=== PATIENT | male | born 1965 | race Caucasian/White ===

== ENCOUNTER 2018-09-16 07:53 | Day surgery (SDC) | payer OTHER ==
[2018-09-16] MEDS ORDERED: PROPOFOL 20 ML (08:50)
[2018-09-16] MEDS ORDERED: ROCURONIUM 50 MG INJ (08:50)
[2018-09-16] MEDS ORDERED: MIDAZOLAM 1 MG/ML 2 ML INJ (08:51)
[2018-09-16] MEDS ORDERED: HYDROmorphONE 2 MG/ML SYG (08:51)
[2018-09-16] MEDS ORDERED: ROPIVACAINE 0.5 % 30 ML VIAL (08:51)
[2018-09-16] MEDS ORDERED: morphine SULFATE/PF (10 MG/10 ML) INJ (09:19)
[2018-09-16 09:51] LABS: INR 0.96; PARTIAL THROMBOPLASTIN TIME 28.6 Sec (23.0-35.0); PROTIME 12.9 Sec (11.9-14.9)
[2018-09-16] MEDS ORDERED: EPHEDrine SULFATE 50 MG/5 ML SYG IV (10:00)
[2018-09-16] MEDS ORDERED: LABETALOL HCL 20MG INJ IV (10:00)
[2018-09-16] MEDS ORDERED: ONDANSETRON 4 MG INJ IV (10:00)
[2018-09-16] MEDS ORDERED: MEPERIDINE 25 MG INJ IV (10:00)
[2018-09-16] MEDS ORDERED: hydrALAzine 20 MG INJ IV (10:00)
[2018-09-16] MEDS ORDERED: HYDROmorphONE 1 MG/5 ML IV SYRINGE IV ×3 (10:00)
[2018-09-16] MEDS ORDERED: OXYCODONE/ACETAMINOPHEN (5/325) TAB PO ×2 (10:00)
[2018-09-16] MEDS ORDERED: DIPHENHYDRAMINE 50 MG INJ IV (10:00)
[2018-09-16] MEDS ORDERED: FENTAnyl 50 MCG/ML VIAL IV ×3 (10:00)
[2018-09-16] MEDS ORDERED: METOCLOPRAMIDE 10 MG INJ IV (10:00)
[2018-09-16] MEDS ORDERED: ONDANSETRON 4 MG INJ (10:30)
[2018-09-16] MEDS ORDERED: METOCLOPRAMIDE 10 MG INJ (10:30)
[2018-09-16] MEDS ORDERED: DEXAMETHASONE 4 MG/ML 1 ML INJ (10:31)
[2018-09-16] MEDS ORDERED: KETOROLAC 30 MG INJ (10:31)
[2018-09-16] MEDS: EPINEPHrine 1 MG/ML 30 ML INJ IRR (10:43)
[2018-09-16] MEDS: morphine SULFATE/PF (10 MG/10 ML) INJ EPI (10:43)
[2018-09-16] MEDS: EPINEPHrine 1 MG/ML 30 ML INJ INJ (10:43)
[2018-09-16] MEDS ORDERED: GLYCOPYRROLATE 0.4 MG INJ (11:20)
[2018-09-16] MEDS ORDERED: NEOSTIGMINE 3 MG/3 ML SYRINGE (11:20)
[2018-09-16] MEDS ORDERED: CEFAZOLIN 1 GM/50 ML (PMX) 50 ML IVPB (15:00)
== END 2018-09-16 15:00 | disposition home or self-care (01) ==
LOC: SDS 07:53
DX: S43.431A Superior glenoid labrum lesion of right shoulder, initial encounter (principal); M24.411 Recurrent dislocation, right shoulder; M75.41 Impingement syndrome of right shoulder; M25.311 Other instability, right shoulder; X58.XXXA Exposure to other specified factors, initial encounter
CPT/HCPCS: 29807; 85610; 85730